=== PATIENT | male | born 1970 | race Caucasian/White ===

== ENCOUNTER 2023-10-05 07:47 | Day surgery (SDC) | payer BC ==
[~2023-10-05] VITALS: Ht 180.3 cm; Wt 78.6 kg
[2023-10-05 08:34] VITALS: BP 139/83; PULSE 65; TEMP 97.7
[2023-10-05] MEDS ORDERED: NORCO 325 MG-51 TAB PO (11:58)
[2023-10-05 12:30] VITALS: BP 97/65; PULSE 73; TEMP 97
--- NOTE | 2023-10-05 12:30 | NUR ---
The patient arrived back to [facility] from the recovery room at this time. The patient appears alert and oriented and denies any pain or nausea at this time. The patient agrees to try some ice water. Post operative vital signs were started at this time. The patient's was brought back to be at his bedside. Call light is within reach. The patient denies any further needs at this time.
[2023-10-05 12:45] VITALS: BP 132/81; PULSE 70
--- NOTE | 2023-10-05 12:45 | NUR ---
The patient appears to be tolerating the water well and he denies wanting anything further to eat or drink at this time. Vital signs appear stable. remains at his bedside.
[2023-10-05 13:00] VITALS: BP 122/77; TEMP 61
--- NOTE | 2023-10-05 13:00 | NUR ---
The patient's IV was placed to INT and he ambulated to the bathroom with the stand by assistance of the nurse and appeared to tolerate the activity well. The nurse instructed the patient that if he is able to void he can get dressed and notify the staff when he is ready to review his discharge paperwork.
--- NOTE | 2023-10-05 13:10 | NUR ---
Discharge instructions were reviewed with the patient and his at this time. They both verbalized understanding and have no questions for the nurse at this time. The patient's IV to his left forearm was removed and a pressure dressing was applied to the site. The patient is dressed and ready to be escorted out.
--- NOTE | 2023-10-05 13:20 | NUR ---
The patient was escorted out via wheelchair to a private vehicle by SKYLER Samuels. The patient's belongings and discharge paperwork were sent with him. The patient's is present to drive him home.
[2023-10-05 13:55] VITALS: BP 117/75
== END 2023-10-05 13:20 | disposition home or self-care (01) ==
LOC: SDCO 07:47
DX: K40.90 Unilateral inguinal hernia, without obstruction or gangrene, not specified as recurrent (principal)
CPT/HCPCS: C1781; J0690; J1100; J1885; J2405; J2704; J3010; J7120